=== PATIENT | male | born 1945 | race Caucasian/White ===

== ENCOUNTER → 2017-10-25 | Outpatient (REF) | payer MEDICARE ==
[2017-10-25 19:40] LABS: URIC ACID 6.6 MG/DL (3.5-7.2)
== END ==
LOC: M LAB REF 17:35
DX: N20.1 Calculus of ureter (principal)
CPT/HCPCS: 84550

== ENCOUNTER → 2018-07-11 | Outpatient (REF) | payer MEDICARE ==
[2018-07-14 00:08] LABS: PSA TOTAL 2.3 ng/mL (0.0-4.0)
== END ==
LOC: M LAB REF 16:29
DX: R39.14 Feeling of incomplete bladder emptying (principal)
CPT/HCPCS: 84154

== ENCOUNTER → 2021-01-30 | Outpatient (REF) | payer MEDICARE ==
[2021-02-01 07:09] LABS: LDL DIRECT 68 mg/dL (0-99)
== END ==
LOC: M LAB REF 15:47
PROVIDERS: ATTEND Internal Medicine
DX: E78.00 Pure hypercholesterolemia, unspecified (principal)